=== PATIENT | male | born 1990 | race Caucasian/White ===

== ENCOUNTER 2017-07-24 13:23 | Outpatient (RCR) | payer OTHER | END 2017-08-11 | LOC: M PT 13:23 | DX: Z51.89 Encounter for other specified aftercare (principal); M54.5 Low back pain ==

== ENCOUNTER 2017-09-05 16:56 | Emergency (ER) | payer OTHER ==
[~2017-09-05] VITALS: Ht 175.3 cm; Wt 81.8 kg
[2017-09-05 17:10] VITALS: BP 143/87
[2017-09-05] MEDS ORDERED: BACT800T5 PO (18:59)
[2017-09-05] MEDS ORDERED: BACTRIM 160MG/800MG DS TAB PO ONE (19:15)
== END 2017-09-05 19:13 | disposition home or self-care (01) ==
LOC: M ED 16:56
DX: L03.317 Cellulitis of buttock (principal)